=== PATIENT | female | born 1960 | race Caucasian/White ===

== ENCOUNTER 2018-08-09 16:31 | Emergency (ER) | payer OTHER, MEDICAID, SELFPAY ==
[2018-08-09 16:32] VITALS: PULSE 126; RESP 20; TEMP 36.7; O2SAT 97; BMI 41.4
--- NOTE | 2018-08-09 16:45 | CT_ITS ---
STUDY: CT ABDOMEN AND PELVIS WITHOUT CONTRAST REASON FOR EXAM: Female, 57 years old. Left flank pain RADIATION DOSAGE (If Supplied By Facility): CTDIvol = ( 24.16 ) mGy, DLP = ( 1158.75 ) mGycm TECHNIQUE: Transaxial images were obtained from the dome of the diaphragm to the symphysis pubis without oral contrast, and without intravenous contrast. Sagittal and coronal images were reconstructed. Individualized dose optimization techniques were used for this CT. COMPARISON: None. FINDINGS: The visualized lung bases are unremarkable. The visualized portions of the heart are within normal limits. There is decreased attenuation of the liver consistent with steatosis. There are surgical clips in the gallbladder fossa consistent with a prior cholecystectomy. Normal spleen. Normal pancreas. Normal bilateral adrenal glands. Normal right kidney. There is a mild left hydronephrosis. There is an obstructing calculus in the proximal left ureter just distal to the UPJ measuring 3 mm. Normal visualized stomach. Normal small intestine. Normal colon. Although there is a history of appendectomy, a structure is present having the appearance of an appendix. Normal abdominal aorta. Normal inferior vena cava. Normal retroperitoneum. Normal urinary bladder. The uterus and adnexal structures are unremarkable. Normal abdominal wall. There are diffuse degenerative changes of the visualized thoracolumbar spine. CT/Abdomen/Pelvis without Cont IMPRESSION: Obstructing 3 mm calculus of the proximal left ureter just distal to the UPJ with mild left hydronephrosis. Hepatic steatosis. Status post cholecystectomy. Although there is a history of appendectomy, a structure is present having the appearance of an appendix. There is no evidence of free intra-abdominal or intrapelvic air, fluid, or inflammatory process. Electronically Signed: Femi Rios MD at 17:43 EST , Service support ,
--- NOTE | 2018-08-09 16:46 | ED.VISSUMM ---
- ER Visit Summary Date of Service: 08/09/18 Chief Complaint: Left flank pain History of Present Illness: The patient is a 57 F presenting with left flank pain. Patient states this started 2 hours ago. She states she has had intermittent pain over the last couple of days and it suddenly worsened 2 hours ago. She has had discoloration of her urine. She has nausea with no vomiting. She has subjective fever and chills. She denies history of kidney stones. Denies other complaints. Physical Examination: Vitals are stable. Patient is afebrile. Alert no acute distress. HEENT exam is unremarkable. Neck is supple. Lungs are clear and equal bilaterally. Heart is regular rate and rhythm. Abdomen is soft nontender nondistended. No guarding or rebound Back: left CVA tenderness Extremities are unremarkable. Skin is warm and dry. Remainder of exam is unremarkable. Emergency Department Course and Treatment: Patient given morphine, Zofran IV. Patient initially had no improvement. She was given a dose of Dilaudid IV. Patient continues to have pain and was given Toradol, morphine, Phenergan IV. CT flank shows obstructing 3 mm calculus of the proximal left ureter just distal to the UPJ with mild left hydronephrosis. Patient was observed. On reevaluation, she is pain-free. Urinalysis shows 25-50 red blood cells, 0 white blood cells. On multiple re-evaluations, patient is pain-free. She is given prescription for [place] and Zofran. She is advised to follow up with Dr. Arango. Advised return to ED if worsening complaints. Disposition: Discharge home Impression: Urolithiasis This note was generated with [employer] dictation software. It may contain incorrect words, spelling, and punctuation that were not noted in review of the chart prior to signing ED Disposition - Plan for ED Patient: Chief Complaint: Flank Pain Instructions: ED Stone Renal W Colic Prescriptions: Hydrocodone Bitart/Apap 5-325 [[place] 5MG-325MG] 1 tablet PO Q6H PRN PRN 3 Days #10 tablet PRN Reason: Pain Ondansetron [Zofran Odt] 4 mg PO Q8H PRN PRN #10 tablet PRN Reason: Nausea Referrals: Jefferson Arango MD [STAFF PHYSICIAN] -
[2018-08-09] MEDS: Morphine 4 MG/ML Syringe IV (16:48)
[2018-08-09] MEDS: Ondansetron 4 MG/2 ML Vial IV (16:48)
[2018-08-09] MEDS: 0.9% Normal Saline 1,000 ML 250 ML IV ×2 (16:48→21:31)
--- NOTE | 2018-08-09 16:49 | ED.DCSUM_ITS ---
- ER Visit Summary Date of Service: 08/09/18 Chief Complaint: Left flank pain History of Present Illness: The patient is a 57 F presenting with left flank pain. Patient states this started 2 hours ago. She states she has had intermittent pain over the last couple of days and it suddenly worsened 2 hours ago. She has had discoloration of her urine. She has nausea with no vomiting. She has subjective fever and chills. She denies history of kidney stones. Denies other complaints. Physical Examination: Vitals are stable. Patient is afebrile. Alert no acute distress. HEENT exam is unremarkable. Neck is supple. Lungs are clear and equal bilaterally. Heart is regular rate and rhythm. Abdomen is soft nontender nondistended. No guarding or rebound Back: left CVA tenderness Extremities are unremarkable. Skin is warm and dry. Remainder of exam is unremarkable. Emergency Department Course and Treatment: Patient given morphine, Zofran IV. Patient initially had no improvement. She was given a dose of Dilaudid IV. Patient continues to have pain and was given Toradol, morphine, Phenergan IV. CT flank shows obstructing 3 mm calculus of the proximal left ureter just distal to the UPJ with mild left hydronephrosis. Patient was observed. On reevaluation, she is pain-free. Urinalysis shows 25-50 red blood cells, 0 white blood cells. On multiple re-evaluations, patient is pain-free. She is given prescription for [place] and Zofran. She is advised to follow up with Dr. Arango. Advised return to ED if worsening complaints. Disposition: Discharge home Impression: Urolithiasis This note was generated with [employer] dictation software. It may contain incorrect words, spelling, and punctuation that were not noted in review of the chart prior to signing ED Disposition - Plan for ED Patient: Chief Complaint: Flank Pain Instructions: ED Stone Renal W Colic Prescriptions: Hydrocodone Bitart/Apap 5-325 [[place] 5MG-325MG] 1 tablet PO Q6H PRN PRN 3 Days #10 tablet PRN Reason: Pain Ondansetron [Zofran Odt] 4 mg PO Q8H PRN PRN #10 tablet PRN Reason: Nausea Referrals: Jefferson Arango MD [STAFF PHYSICIAN] -
[2018-08-09 17:15] VITALS: BP 178/89
[2018-08-09] MEDS: HYDROmorphone 1 MG/ML Syringe IV (17:23)
[2018-08-09] MEDS: Ketorolac 30 MG/ML Syringe IV (17:54)
[2018-08-09] MEDS: proMETHazine 25 MG/ML Syringe 6.25 MG IV (17:54)
[2018-08-09] MEDS: morphine 8 MG/ML Syringe IV (17:55)
[2018-08-09 18:02] VITALS: BP 175/101
[2018-08-09 19:07] VITALS: BP 145/98; PULSE 96; RESP 18; O2SAT 95
[2018-08-09 20:16] LABS: Bacteria 0 SEEN /hpf (None Seen); Mucous, Urine 0 SEEN /hpf (<or=2+); White Blood Cells 0 SEEN /hpf (0-5)
[2018-08-09 20:17] LABS: Color, Urine Yellow (Yellow); Glucose, Dipstick Normal (Normal); Ketone-Dipstick Negative (Negative); Leukocyte Esterase-Dipstick 25 /ul (Negative); Nitrite-Dipstick Negative (Negative); Occult Blood-Urine 250 /ul (Negative); Protein-Dipstick 30 mg/dl (Negative); Specific Gravity, Urine 1.015 (1.002-1.030); Urine Bilirubin Dipstick Negative (Negative); Urine Clarity Clear (Clear); Urine Urobilinogen Normal (Normal)
[2018-08-09 20:34] LABS: Red Blood Cells-Urine 25-50 SEEN /hpf (0-5); Squamous Epithelial Cells - UA 0-5 SEEN /hpf (5-10)
[2018-08-09 21:27] VITALS: BP 102/64; PULSE 89; RESP 18; O2SAT 93
--- NOTE | 2018-08-09 23:37 | DCINST.ED_ITS ---
ED Disposition - Plan for ED Patient: Chief Complaint: Flank Pain Instructions: ED Stone Renal W Colic Prescriptions: Hydrocodone Bitart/Apap 5-325 [[place] 5MG-325MG] 1 tablet PO Q6H PRN PRN 3 Days #10 tablet PRN Reason: Pain Ondansetron [Zofran Odt] 4 mg PO Q8H PRN PRN #10 tablet PRN Reason: Nausea Referrals: Jefferson Arango MD [STAFF PHYSICIAN] -
[2018-08-10 00:03] VITALS: BP 102/69; PULSE 86; RESP 18; O2SAT 94
== END 2018-08-10 00:05 | disposition home or self-care (01) ==
PROVIDERS: Emergency Provider Emergency Medicine
DX: N20.9 Urinary calculus, unspecified (principal); E11.9 Type 2 diabetes mellitus without complications; K21.9 Gastro-esophageal reflux disease without esophagitis; I10 Essential (primary) hypertension; J44.9 Chronic obstructive pulmonary disease, unspecified; Z72.0 Tobacco use
CPT/HCPCS: 74176; 81001; 96361; 96374; 96375; 96376; 99283; J7030; A4216; J2405